=== PATIENT | female | born 1950 | race African-American/Black ===

== ENCOUNTER → 2018-01-09 | Outpatient (CLI) | payer OTHER ==
--- NOTE | 2018-01-09 16:46 | RAD ---
INDICATION: Leg swelling with intermittent varicose veins. TECHNIQUE: Vein reflux study includes grayscale, color flow and waveform analysis. FINDINGS: Right great saphenous vein is patent with no reflux of greater than one second appreciated. There are spider veins noted along the distal right thigh. There was reflux at the saphenofemoral junction, 0.7 seconds, diameter 6.4 mm. Left great saphenous vein is without thrombus. No reflux is identified. Apparent spider veins are noted along the distal third of the left tibia. Both lesser saphenous veins demonstrate no reflux and are patent. IMPRESSION: No significant reflux within the great saphenous veins or lesser saphenous veins. Electronically signed by: Aquiles Wang MD (01/09/2018 4:43 PM) [id number]
== END | disposition home or self-care (01) ==
LOC: US 11:49
PROVIDERS: ATTEND Physician Assistant Medical
DX: M79.89 Other specified soft tissue disorders (principal)
CPT/HCPCS: 93970

== ENCOUNTER → 2018-07-10 | Outpatient (CLI) | payer OTHER ==
--- NOTE | 2018-07-10 14:01 | RAD ---
DATE: 07/10/2018 EXAM: MAMMO HERIBERTO SCREENING BILATERAL HISTORY: Routine screening COMPARISON: 09/07/2016 and 08/13/2012 screen mammographic exams This study was interpreted with the benefit of Computerized Aided Detection (CAD). Breast Density: SCATTERED The breast parenchyma shows scattered fibroglandular densities. Breast parenchyma level B. FINDINGS: Minimal benign calcification noted. There is a small mass involving the left central retroareolar region is seen on to was stenosis imaging. It is located 4 cm from the nipple and measures 0.3 cm diameter. It is not seen on the previous exam. No distortion. No suspicious calcifications. IMPRESSION: Small new mass is suspected involving the left central retroareolar region. Further evaluation with spot compression imaging with tomosynthesis is recommended. Ultrasound may be needed. Annual right screening mammography recommended. BI-RADS CATEGORY: 0 INCOMPLETE: NEEDS ADDITIONAL IMAGING EVALUATION AND/OR PRIOR MAMMOGRAMS FOR COMPARISON. RECOMMENDED FOLLOW-UP: ADD ADDITIONAL IMAGING PQRS compliance statement: Patient information was entered into a reminder system with a target due date in 1 year for the next mammogram. Mammography is a sensitive method for finding small breast cancers, but it does not detect them all and is not a substitute for careful clinical examination. A negative mammogram does not negate a clinically suspicious finding and should not result in delay in biopsying a clinically suspicious abnormality. "Our facility is accredited by the [employer] Mammography [employer]."
== END | disposition home or self-care (01) ==
LOC: MAMMO 10:25
PROVIDERS: ATTEND Physician Assistant Medical
DX: Z12.31 Encounter for screening mammogram for malignant neoplasm of breast (principal)
CPT/HCPCS: 77063; 77067

== ENCOUNTER → 2018-07-18 | Outpatient (CLI) | payer OTHER ==
--- NOTE | 2018-07-18 11:51 | RAD ---
DATE: 07/18/2018 EXAM: DIGITAL DIAGNOSTIC LT, BREAST LEFT HISTORY: Suspicious screening study COMPARISON: 09/13/2016, 07/10/2018 This study was interpreted with the benefit of Computerized Aided Detection (CAD). Breast Density: HETERO The breast parenchyma is heterogenously dense, which could reduce sensitivity of mammography. Breast parenchyma level C. FINDINGS: Additional views of the left breast including spot compression views were obtained and correlated with the screening images. The tiny central breast nodule described on the tomosynthesis images from the screening study is not clearly visualized on today's 2-D images, probably due to overlying fibroglandular shadows. A small lateral retroareolar density evident in the CC projection appears unchanged since 09/13/2016. . Left breast ultrasound, 07/18/2018: The entire left breast was carefully scanned. Several small smooth ducts are evident in the retroareolar region. No breast mass or unusual fluid collection is seen. IMPRESSION: The tiny central left breast nodule seen on the screening tomosynthesis images could not be redemonstrated with spot compression mammograms, and a sonographic correlate could not be defined. This is likely a benign nodule, intermittently obscured by the overlying dense fibroglandular tissues. Mammographic follow-up beginning with 3-D left mammography in 6 months and bilateral mammography at one year is suggested. BI-RADS CATEGORY: 3 PROBABLY BENIGN FINDING(S)-SHORT INTERVAL FOLLOW-UP SUGGESTED RECOMMENDED FOLLOW-UP: 6M 6 MONTH FOLLOW-UP PQRS compliance statement: Patient information was entered into a reminder system with a target due date for the next mammogram. Mammography is a sensitive method for finding small breast cancers, but it does not detect them all and is not a substitute for careful clinical examination. A negative mammogram does not negate a clinically suspicious finding and should not result in delay in biopsying a clinically suspicious abnormality. "Our facility is accredited by the [employer] Mammography [employer]."
== END | disposition home or self-care (01) ==
LOC: MAMMO 09:29
PROVIDERS: ATTEND Physician Assistant Medical
DX: R92.8 Other abnormal and inconclusive findings on diagnostic imaging of breast (principal)
CPT/HCPCS: 76641; 77065

== ENCOUNTER → 2018-11-07 | Outpatient (CLI) | payer OTHER ==
--- NOTE | 2018-11-07 12:57 | RAD ---
DATE: 11/07/2018 EXAM: MAMMO HERIBERTO DIAG LT HISTORY: 6 month follow-up COMPARISON: 07/10/2018, 07/18/2018 This study was interpreted with the benefit of Computerized Aided Detection (CAD). Breast Density: HETERO The breast parenchyma is heterogenously dense, which could reduce sensitivity of mammography. Breast parenchyma level C. FINDINGS: 2-D and 3-D tomosynthesis imaging was performed in CC and MLO projections. The tiny 3 to 4 mm nodule seen centrally in the left breast on the 07/10/2018 exam is redemonstrated on CC tomosynthesis images #19 and is unchanged in size. No new or enlarging breast densities are seen. Minimal benign type calcification is present. No suspicious microcalcifications have developed. IMPRESSION: Stable tiny left breast nodule. Follow-up bilateral mammography in 6 months is suggested. BI-RADS CATEGORY: 3 PROBABLY BENIGN FINDING(S)-SHORT INTERVAL FOLLOW-UP SUGGESTED RECOMMENDED FOLLOW-UP: 6M 6 MONTH FOLLOW-UP PQRS compliance statement: Patient information was entered into a reminder system with a target due date for the next mammogram. Mammography is a sensitive method for finding small breast cancers, but it does not detect them all and is not a substitute for careful clinical examination. A negative mammogram does not negate a clinically suspicious finding and should not result in delay in biopsying a clinically suspicious abnormality. "Our facility is accredited by the [employer] Mammography [employer]."
== END | disposition home or self-care (01) ==
LOC: MAMMO 12:03
PROVIDERS: ATTEND Physician Assistant Medical
DX: R92.8 Other abnormal and inconclusive findings on diagnostic imaging of breast (principal)
CPT/HCPCS: 77065; G0279; 77061

== ENCOUNTER → 2019-05-01 | Outpatient (CLI) | payer OTHER ==
--- NOTE | 2019-05-01 15:39 | RAD ---
DATE: 05/01/2019 EXAM: MAMMO HERIBERTO DIASridhar BILAT HISTORY: Left breast mass COMPARISON: 11/07/2018 mammogram, 07/10/2018 mammogram, 09/13/2016 This study was interpreted with the benefit of Computerized Aided Detection (CAD). Breast Density: HETERO The breast parenchyma is heterogenously dense, which could reduce sensitivity of mammography. Breast parenchyma level C. FINDINGS: Bilateral 3-D tomosynthesis was performed in CC and MLO projections. 2-D CC and MLO views are provided. Right breast: There are no suspicious microcalcifications, masses or areas of architectural distortion. Left breast: There are no suspicious microcalcifications, masses or areas of architectural distortion. Specifically, stable left breast mass measuring 3 mm best viewed on tomosynthesis CC image 19. Findings favor benign etiology given stability. Bilateral mammograms compared to prior examinations and appears unchanged. IMPRESSION: 1. Negative right mammogram. 2. Benign findings of the left breast. BI-RADS CATEGORY: 2 BENIGN FINDING(S) RECOMMENDED FOLLOW-UP: 12M 12 MONTH FOLLOW-UP PQRS compliance statement: Patient information was entered into a reminder system with a target due date 05/01/2020 for the next mammogram. Mammography is a sensitive method for finding small breast cancers, but it does not detect them all and is not a substitute for careful clinical examination. A negative mammogram does not negate a clinically suspicious finding and should not result in delay in biopsying a clinically suspicious abnormality. "Our facility is accredited by the [employer] Mammography [employer]."
== END | disposition home or self-care (01) ==
LOC: MAMMO 14:32
PROVIDERS: ATTEND Physician Assistant Medical
DX: R92.1 Mammographic calcification found on diagnostic imaging of breast (principal)
CPT/HCPCS: 77066; G0279; 77062

== ENCOUNTER → 2020-06-01 | Outpatient (CLI) | payer MEDICARE, OTHER ==
--- NOTE | 2020-06-02 17:12 | RAD ---
BILATERAL SCREENING MAMMOGRAM, 3-D History: Routine screening. Comparison: 09/13/2016, 07/10/2018, 05/01/2019. Technique: MLO and CC digital tomosynthesis (3D) images obtained. Radiologist reviewed these images on dedicated workstation. Findings: Breast Tissue Density C : The breasts are heterogeneously dense, which may obscure small masses. The There are no dominant masses, suspicious microcalcifications, or architectural distortion. IMPRESSION: No mammographic evidence of malignancy. Recommend routine screening. BI-RADS category 1: Negative. The images were reviewed with computer-aided detection. Patient information is entered into reminder system with a target due date for the next screening mammogram. Mammography is the most sensitive method for finding small breast cancers, but it does not detect them all and is not a substitute for careful clinical examination. A negative mammogram does not negate a clinically suspicious finding and should not result in delay in biopsying a clinically suspicious abnormality. "Our facility is accredited by the [employer] Mammography Program." Electronically signed by: Dion Mortensen MD (06/02/2020 5:09 PM) [email or web address]
== END | disposition home or self-care (01) ==
LOC: MAMMO 09:04
PROVIDERS: ATTEND Physician Assistant Medical
DX: Z12.31 Encounter for screening mammogram for malignant neoplasm of breast (principal)
CPT/HCPCS: 77063; 77067

== ENCOUNTER → 2021-06-02 | Outpatient (CLI) | payer MEDICARE ==
--- NOTE | 2021-06-02 11:03 | RAD ---
Bone densitometry 06/02/2021 10:56 AM Indication: Reason: POST MENOPAUSAL / Spl. Instructions: / History: Comparison Study: Bone densitometry September 20, 2016 Discussion: Bone Densitometry was performed with dual photon absorption of the lumbar spine and pro ximal femurs. Lumbar Spine: Bone average density is 1.219g/cm2 for L1-L4. T-Score is 0.3 (prior T score 0.4) Right femoral neck: Bone average density is 0.745g/cm2. T-Score is -2.1. (Prior T score -1.7) IMPRESSION: Persistent osteopenia, with mildly reduced bone mineral density in the right femoral neck in the interim Note: Definitions established by the World Health Organization: Normal: T-score is -1.0 or above. Osteopenia: T-score is between -1.0 and -2.5. Osteoporosis: T-score is -2.5 or below. Electronically signed by: Humble Acosta MD (06/02/2021 11:01 AM) [id number]
--- NOTE | 2021-06-02 13:55 | RAD ---
EXAM: Bilateral digital screening mammogram with tomosynthesis. HISTORY: 70-year-old female presents for screening mammography. TECHNIQUE: Full-field digital craniocaudal and mediolateral oblique 2D and 3D tomosynthesis images of both breasts are obtained for evaluation. Computer aided detection was applied. COMPARISON: 06/01/2020 BREAST PARENCHYMAL DENSITY: Level C - Heterogeneously dense. FINDINGS: There is no new suspicious mass, microcalcification or region of architectural distortion. There are stable areas of asymmetry and nodularity within both breasts. There are multiple benign gerhard cifications. IMPRESSION: BI-RADS Category 2: Benign finding(s). RECOMMENDATION: Annual mammography is recommended. If your mammogram demonstrates that you have dense breast tissue, which could hide abnormalities, and if you have other risk factors for breast cancer that have been identified, you might benefit from s upplemental screening tests that may be suggested by your ordering physician. Dense breast tissue, i n and of itself, is a relatively common condition. This information is not provided to cause undue c oncern, but rather to raise your awareness and to promote discussion with your physician regarding th e presence of other risk factors, in addition to dense breast tissue. A report of your mammography re sults will be sent to you and your physician. You should contact your physician if you have any ques tions or concerns regarding this report. Mammography is a sensitive method for finding small breast cancers, but it does not detect them all a nd is not a substitute for careful clinical examination. A negative mammogram does not negate a clin ically suspicious finding and should not result in delay in biopsying a clinically suspicious abnorma lity. PQRS compliance statement - Patient information was entered into a reminder system with a target due date for the next mammogram. "Our facility is accredited by the [employer] Mammography Program." Electronically signed by: Dorina Tavarez MD (06/02/2021 1:53 PM) [id number]
== END ==
LOC: MAMMO 10:02
PROVIDERS: ATTEND Physician Assistant Medical
DX: Z12.31 Encounter for screening mammogram for malignant neoplasm of breast (principal); R92.1 Mammographic calcification found on diagnostic imaging of breast; Z78.0 Asymptomatic menopausal state
CPT/HCPCS: 77063; 77067; 77080